=== PATIENT | male | born 1975 | race African-American/Black ===

== ENCOUNTER 2020-07-01 16:23 | Emergency (ER) | payer SELFPAY ==
[2020-07-01 16:30] VITALS: BP 164/95; PULSE 104; RESP 16; TEMP 37; O2SAT 100
--- NOTE | 2020-07-01 16:35 | ED.SKABFB ---
HPI - Skin/Abscess/Foreign Bdy General Chief complaint: Skin/Abscess/Foreign Body Stated complaint: BILAT HAND INJURY/R FOOT INJURY Time Seen by Provider: 07/01/20 16:35 Source: patient Mode of arrival: ambulatory Limitations: no limitations History of Present Illness HPI narrative: Gennaro Moore is a 45 yo male with no PMH who comes to express care with rash on bilateral palms of hands that he believes is caused from chemicals at work and on rash on R foot, dorsal and lateral sides. He states foot itches. 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 He is allergic to latex and has use vinyl gloves in the liner but perspires inside those gloves. Meantime rash is gone from being pruritic to more burning and he is also developed a separate type of similar looking rash on his right dorsum of foot Related Data Allergies Allergy/AdvReac Type Severity Reaction Status Date / Time Latex, Natural Rubber Allergy Rash Verified 07/01/20 16:34 Review of Systems Review of Systems: Narrative: CONSTITUTIONAL: Denies fever, chills, sweats. EYES: Denies visual changes, redness, discharge. ENT: Denies rhinorrhea, congestion, sore throat, otalgia. CARDIOVASCULAR: Denies chest pain, palpitations, edema. RESPIRATORY: Denies dyspnea, wheezing, cough GASTROINTESTINAL: Denies abdominal pain, nausea, vomiting, diarrhea. GENITOURINARY: Denies dysuria, hematuria, abnormal discharge SKIN: Has red pruritic rash on the palms of both hands and also on the dorsum lateral side of right foot NEUROLOGIC: Denies numbness, or focal weakness. PSYCHIATRIC: Denies anxiety or depression. [facility] Past Medical History Medical History No acute medical problems Family History Family History Other Hypertension Social History Social History (Updated 07/01/20 @ 17:10 by Paradise Fay CNP) Smoking status: Never smoker Alcohol intake: current Comments At time of signature, I agree with nursing past medical, surgical, social and family history. There is no relevant family history pertinent to the presenting complaint. Patient's blood pressure is elevated but has regular primary care physician and states is upset because of the stuff going on the family Exam Narrative: Exam Narrative: GENERAL: This is a well-nourished, well-developed patient, in mild distress. HEAD: normocephalic, atraumatic. EYES: Sclera clear/white. Vision is grossly intact. EARS: External ears normal. Hearing grossly intact. NOSE: External nose normal without nasal discharge, nares without redness, no rhinorrhea. THROAT: Mucous membranes moist, NECK: Neck supple, CARDIOVASCULAR: Regular rate and rhythm without murmurs, gallops, or rubs. RESPIRATORY: Clear to auscultation. Breath sounds equal bilaterally. No wheezes, rales, or rhonchi. GASTROINTESTINAL: Abdomen soft, non-tender, SKIN: warm, intact with red papular and vesicular rash on palms of both hands; slightly different looking rash on dorsum of foot and lateral ankle that appears to be spreading that is pruritic NEURO: awake, alert, and oriented to person, place and time. There were no obvious focal neurologic abnormalities. Steady gait EXTREMITIES: Normal range of motion. 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
== END 2020-07-01 17:45 | disposition home or self-care (01) ==
PROVIDERS: Emergency Provider Nurse Practitioner
DX: R21 Rash and other nonspecific skin eruption (principal); L30.8 Other specified dermatitis
CPT/HCPCS: 99213; G0463